=== PATIENT | female | born 1955 | race Caucasian/White ===

== ENCOUNTER 2020-11-14 02:50 | Inpatient (IN) ==
[2020-11-14] MEDS ORDERED: Isovue-370 500 ML BOTTLE IVP ONE (03:47)
[2020-11-14] MEDS ORDERED: Ondansetron 4 MG/2 ML VIAL IVP ONE (03:48)
[2020-11-14] MEDS ORDERED: Famotidine 20 MG/2 ML VIAL IVP ONE (03:48)
[2020-11-14] MEDS ORDERED: 0.9 % Sodium Chloride 1,000 ML IVC ONE (03:48)
[2020-11-14 03:57] LABS: Basophils % 0.3 %; Eosinophils # 0.1 K/mcL (0.0-0.6); Eosinophils % 0.9 %; Hematocrit 48.8 % (35.3-44.9); Hemoglobin 16.6 g/dL (11.5-15.4); Immature Granulocytes % 0.5 % (0-4); Lymphocytes # 1.6 K/mcL (0.6-4.6); Lymphocytes % 17.3 %; Mean Corpuscular Hemoglobin 29.9 pg (28.0-33.3); Mean Corpuscular Volume 87.9 fL (83.0-100.0); Mean Platelet Volume 11.1 fL (9.4-12.4); Monocytes # 0.6 K/mcL (0.0-1.3); Platelet Count 248 K/mcL (140-400); Red Blood Count 5.55 M/mcL (3.82-4.97); Red Cell Distribution Width 12.8 % (11.5-14.5); White Blood Count 9.3 K/mcL (4.3-11.1)
[2020-11-14 03:58] LABS: Bilirubin,Urine Negative (Negative); Blood,Urine Moderate (Negative); Clarity,Urine Clear (Clear); Color,Urine Yellow (Yellow); Glucose,Urine (UA) Normal (Normal); Hyaline Casts,Urine Few per lpf (None Seen); Ketones,Urine Negative (Negative); Leukocyte Esterase,Urine Small (Negative); Mucus,Urine Few per lpf (None-Few); Nitrite,Urine Negative (Negative); Protein,Urine 50 mg/dL (Neg-Trace); Specific Gravity,Urine 1.029 (1.010-1.025); Squamous Epithelial Cell,Urine Few per hpf (None-Few); Urobilinogen,Urine Normal (Normal)
[2020-11-14 04:17] LABS: Alanine Aminotransferase 34 Units/L (7-52); Albumin 4.9 g/dL (3.5-5.7); Albumin/Globulin Ratio 1.7 (1.1-2.2); Alkaline Phosphatase 111 Units/L (34-104); Aspartate Amino Transferase 23 Units/L (13-39); BUN/Creatinine Ratio 16 (6-26); Bilirubin,Direct 0.1 mg/dL (0.0-0.2); Bilirubin,Indirect 0.4 mg/dL (0.0-1.0); Bilirubin,Total 0.5 mg/dL (0.3-1.0); Blood Urea Nitrogen 13 mg/dL (8-23); Calcium 10.2 mg/dL (8.6-10.3); Carbon Dioxide 29 mEq/L (23-29); Chloride 103 mEq/L (98-107); Globulin 2.9 g/dL (2.4-3.5); Glucose 129 mg/dL (70-105); Lipase 36 Units/L (11-82); Osmolality,Calculated 294 (280-300); Potassium 3.4 mEq/L (3.5-5.1); Sodium 141 mEq/L (136-145); Total Protein 7.8 g/dL (6.4-8.9); eGFR For African Americans > 60 (> 60); eGFR For Non-African Americans > 60 (> 60)
[2020-11-14] MEDS ORDERED: Potassium Chloride 20 MEQ, Lidocaine 1% 2 ML in 0.9 % Sodium Chloride 250 ML IVPB ONE (07:09)
[2020-11-14] MEDS ORDERED: Naloxone 0.4 MG/ML INJ IVP PRN (07:14)
[2020-11-14] MEDS ORDERED: Ondansetron 4 MG/2 ML VIAL IVP PRN ×2 (07:14→10:33)
[2020-11-14] MEDS ORDERED: Morphine Sulfate 2 MG/ML SYRINGE IVP PRN (07:16)
[2020-11-14] MEDS ORDERED: *HR* Labetalol 20 MG/4 ML SYRINGE IVP PRN (08:09)
[2020-11-14] MEDS ORDERED: Chloraseptic Spray 177 ML BOTTLE MM PRN (09:33)
[2020-11-14] MEDS ORDERED: Acetaminophen IV 1,000 MG/100 ML BAG IVPB SCH (10:32)
[2020-11-14] MEDS: Ringers Solution, Lactated 1,000 ML IVC SCH ×3 (12:48→23:36)
[2020-11-14] MEDS: *HR* Heparin 5,000 UNIT/ML VIAL SQ SCH ×2 (16:08→20:16)
[2020-11-14] MEDS: Pantoprazole 40 MG VIAL IVP SCH (17:14)
[2020-11-14] MEDS: Acetaminophen IV 1,000 MG/100 ML BAG IVPB SCH (20:15)
[2020-11-15 02:47] LABS: Basophils % 0.2 %; Eosinophils # 0.2 K/mcL (0.0-0.6); Immature Granulocytes % 0.4 % (0-4); Lymphocytes # 2.3 K/mcL (0.6-4.6); Lymphocytes % 47.9 %; Mean Corpuscular HGB Conc 33.6 g/dL (31.6-35.5); Mean Corpuscular Hemoglobin 30.7 pg (28.0-33.3); Mean Corpuscular Volume 91.3 fL (83.0-100.0); Mean Platelet Volume 11.3 fL (9.4-12.4); Monocytes # 0.4 K/mcL (0.0-1.3); Monocytes % 8.1 %; Neutrophils # 1.9 K/mcL (1.6-8.9); Platelet Count 193 K/mcL (140-400); Red Blood Count 4.27 M/mcL (3.82-4.97); Segmented Neutrophils % 39.4 %; White Blood Count 4.7 K/mcL (4.3-11.1)
[2020-11-15 02:48] LABS: Hemoglobin 13.1 g/dL (11.5-15.4)
[2020-11-15 03:06] LABS: BUN/Creatinine Ratio 13 (6-26); Blood Urea Nitrogen 9 mg/dL (8-23); Calcium 8.3 mg/dL (8.6-10.3); Carbon Dioxide 25 mEq/L (23-29); Chloride 109 mEq/L (98-107); Glucose 88 mg/dL (70-105); Osmolality,Calculated 290 (280-300); Potassium 3.4 mEq/L (3.5-5.1); Sodium 141 mEq/L (136-145); eGFR For African Americans > 60 (> 60); eGFR For Non-African Americans > 60 (> 60)
[2020-11-15] MEDS: Ringers Solution, Lactated 1,000 ML IVC SCH (03:53)
[2020-11-15] MEDS: Acetaminophen IV 1,000 MG/100 ML BAG IVPB SCH ×2 (03:54→12:42)
[2020-11-15] MEDS: Pantoprazole 40 MG VIAL IVP SCH (05:41)
[2020-11-15] MEDS: *HR* Heparin 5,000 UNIT/ML VIAL SQ SCH ×2 (05:41→12:47)
[2020-11-15 11:24] VITALS: BP 120/62
== END 2020-11-15 14:47 | disposition home or self-care (01) | DRG 389 ==
LOC: 2ANU 02:50 → EMEROOARM 02:50 → 2ANU 08:17 → SUATTDRO 11:11
PROVIDERS: ADMIT Family Medicine; ATTEND Internal Medicine